=== PATIENT | female | born 1980 | race Caucasian/White ===

== ENCOUNTER 2018-07-27 21:26 | Emergency (ER) | payer OTHER ==
[2018-07-27 21:32] VITALS: BP 136/69; PULSE 81; TEMP 98.7; BMI 48.5
[2018-07-27] MEDS ORDERED: ONDANSETRON 4 MG/2 ML VIAL ONE (21:35)
[2018-07-27] MEDS ORDERED: ONDANSETRON 4 MG/2 ML VIAL IVPB ONE (21:35)
[2018-07-27] MEDS ORDERED: SODIUM CHLORIDE 0.9% 500 ML INFUS.BAG IV ONE (21:35)
[2018-07-27 22:01] LABS: BASO % 0.6 % (0-2.0); EOS % 1.2 % (0-4.5); HEMATOCRIT 40.8 % (32.4-45.2); HEMOGLOBIN 14.3 GM/dL (10.7-15.3); LYMPH % 20.9 % (8-40); MCH 31.4 pg (25.7-33.7); MCHC 35.1 g/dl (32.0-36.0); MEAN CELL VOLUME 89.6 fl (80-96); MEAN PLT VOLUME 10.2 fl (7.5-11.1); MONO % 6.6 % (3.8-10.2); NEUT % 70.7 % (42.8-82.8); PLATELET COUNT 213 K/MM3 (134-434); RBC 4.56 M/mm3 (3.60-5.2); RDW 14.2 % (11.6-15.6); WHITE BLOOD COUNT 9.8 K/mm3 (4.0-10.0)
[2018-07-27 22:15] LABS: ALBUMIN 3.9 g/dl (3.4-5.0); ALK PHOS 84 U/L (45-117); ANION GAP 8 MMOL/L (8-16); BILIRUBIN,TOTAL 0.4 mg/dL (0.2-1); BLOOD UREA NITROGEN 12 mg/dL (7-18); CALCIUM 8.5 mg/dL (8.5-10.1); CHLORIDE 101 mmol/L (98-107); CO2 28 mmol/L (21-32); CREATININE 0.8 mg/dL (0.55-1.3); LIPASE 167 U/L (73-393); POTASSIUM 4.4 mmol/L (3.5-5.1); SGOT/AST 15 U/L (15-37); SGPT/ALT 37 U/L (13-61); SODIUM 137 mmol/L (136-145); TOT PROT 7.2 g/dl (6.4-8.2)
[2018-07-27 22:16] LABS: GLUCOSE,RANDOM 317 mg/dL (74-106)
[2018-07-27] MEDS ORDERED: FAMOTIDINE 20 MG/50 ML IVPB 20 MG/50 ML MG IVPB ONE ×2 (22:23→22:33)
[2018-07-27] MEDS ORDERED: KETOROLAC TROMETHAMINE 30 MG/1 ML VIAL IVPUSH ONE (22:23)
--- NOTE | 2018-07-27 22:31 | PDOC ---
History of Present Illness - General Chief Complaint: Pain, Acute Stated Complaint: NAUSEA/VOMITING Time Seen by Provider: 07/27/18 21:34 History Source: Patient Exam Limitations: No Limitations - History of Present Illness Initial Comments: 07/27/18 22:24 Patient is a 33-year-old female with history of DM, acid reflux, C/S, BTL, 6 months complaining of right upper quadrant pain x 3 days. Pain is colicky and sharp, 10/10 back associated nausea and many episodes of vomiting, small amount of diarrhea, which started after eating in a salad and pizza. Patient states she went to [facility] yesterday had labs and an ultrasound done they state no findings. However after being treated in the emergency room, discharge home pain returned. PMD: [facility] PMHX: As above PSOCHX: Negative EtOH, negative cigarette, negative drugs ALL: NKDA GENERAL/CONSTITUTIONAL: [No fever or chills. No weakness. No weight change.] HEAD, EYES, EARS, NOSE AND THROAT: [No change in vision. No ear pain or discharge. No sore throat.] CARDIOVASCULAR: [No chest pain or shortness of breath.] RESPIRATORY: [No cough, wheezing, or hemoptysis.] GASTROINTESTINAL: (+) nausea, vomiting, diarrhea or constipation. No rectal bleeding.] GENITOURINARY: [No dysuria, frequency, or change in urination.] MUSCULOSKELETAL: [No joint or muscle swelling or pain. No neck or back pain.] SKIN AND BREASTS: [No rash or easy bruising.] NEUROLOGIC: [No headache, vertigo, loss of consciousness, or loss of sensation.] PSYCHIATRIC: [No depression or anxiety.] ENDOCRINE: [No increased thirst. No abnormal weight change.] HEMATOLOGIC/LYMPHATIC: [No anemia, easy bleeding, or history of blood clots.] ALLERGIC/IMMUNOLOGIC: [No hives or skin allergy. No latex allergy.] GENERAL: [The patient is awake, alert, and fully oriented, in no acute distress. ] HEAD: [Normal with no signs of trauma.] EYES: [Pupils equal, round and reactive to light, extraocular movements intact, sclera anicteric, conjunctiva clear.] ENT: [Ears normal, nares patent, oropharynx clear without exudates. Moist mucous membranes.] NECK: [Normal range of motion, supple without lymphadenopathy, JVD, or masses.] LUNGS: [Breath sounds equal, clear to auscultation bilaterally. No wheezes, and no crackles.] HEART: [Regular rate and rhythm, normal S1 and S2 without murmur, rub.] ABDOMEN: [Soft, (+) tenderness in the RUQ and upper bactk, normoactive bowel sounds. No guarding, no rebound. No masses.] EXTREMITIES: [Normal range of motion, no edema. No clubbing or cyanosis. No cords, erythema, or tenderness.] NEUROLOGICAL: [Cranial nerves II through XII grossly intact. Normal speech, normal gait.] PSYCH: [Normal mood, normal affect.] SKIN: [Warm, Dry, normal turgor, no rashes or lesions noted.] Past History - Past Medical History Allergies/Adverse Reactions: Allergies Allergy/AdvReac Type Severity Reaction Status Date / Time No Known Allergies Allergy Verified 07/27/18 21:28 Home Medications: Ambulatory Orders Metformin HCl [Metformin HCl ER] 1,000 mg PO DAILY 07/27/18 COPD: Yes Diabetes: Yes - Suicide/Smoking/Psychosocial Hx Smoking History: Never smoked Information on smoking cessation initiated: No Hx Alcohol Use: No Drug/Substance Use Hx: No Substance Use Type: None *Physical Exam - Vital Signs Last Vital Signs Temp Pulse Resp BP Pulse Ox 98.7 F 81 16 136/69 100 07/27/18 21:28 07/27/18 21:28 07/27/18 21:28 07/27/18 21:28 07/27/18 21:28 ED Treatment Course - LABORATORY CBC & Chemistry Diagram: 07/27/18 21:35 07/27/18 21:35 - ADDITIONAL ORDERS Additional order review: Laboratory Results 07/27/18 07/27/18 21:35 21:35 Sodium 137 Potassium 4.4 Chloride 101 Carbon Dioxide 28 Anion Gap 8 BUN 12 Creatinine 0.8 Creat Clearance w eGFR > 60 Random Glucose 317 H* Calcium 8.5 Total Bilirubin 0.4 AST 15 ALT 37 Alkaline Phosphatase 84 Total Protein 7.2 Albumin 3.9 Lipase 167 Serum , Qual Negative 07/27/18 21:35 RBC 4.56 MCV 89.6 MCHC 35.1 RDW 14.2 MPV 10.2 Neutrophils % 70.7 Lymphocytes % 20.9 Monocytes % 6.6 Eosinophils % 1.2 Basophils % 0.6 - Medications Given in the ED: ED Medications Discontinued Medications Generic Name Dose Route Start Last Admin Trade Name Abbe PRN Reason Stop Dose Admin Ondansetron HCl 4 mg 07/27/18 21:35 07/27/18 21:42 Zofran Injection IVPB 07/27/18 21:36 4 mg ONCE ONE Administration Sodium Chloride 1,000 ml 07/27/18 21:35 07/27/18 21:42 Normal Saline - IV 07/27/18 21:36 1,000 ml ONCE ONE Administration Medical Decision Making - Medical Decision Making 07/27/18 22:24 Patient is a 33-year-old female with history of DM, acid reflux, C/S, BTL, 6 months complaining of right upper quadrant pain x 3 days. Pain is colicky and sharp, 10/10 back associated nausea and many episodes of vomiting, small amount of diarrhea, which started after eating in a salad and pizza. patient had work up yesterday with US she states no findings. Suspect gastritis versus cholecystitis will get labs ct abd Pain meds. Patient was given Toradol 30 mg IV and Pepcid 20 mg IV, IV fluids with no relief of symptoms. Morphine 4 mg IV with good relief of symptoms. 07/27/18 22:33 No acute findings on lab work except for BS of 317 Bedside ultrasound done no normal gallbladder 07/28/18 01:22 Patient Full Name: NICOLE GARAY Patient Accession No: [id number] Patient : 1980 Reason for Exam: RUQ PAIN Referring Physician: Patient Name: TANISHA RIVERA THIS IS A PRELIMINARY REPORT FROM [facility] DATE OF SERVICE: 2018-07-27 23:43:17 IMAGES: [id number] EXAM: ABDOMEN \T\ PELVIS CT WITH CONTR HISTORY: Right upper quadrant pain COMPARISON: None. FINDINGS: No obvious abnormalities of the gallbladder. There is any suspicion of cholelithiasis or cholecystitis, ultrasound is more sensitive. No bowel obstruction or inflammation. Normal appendix. Negative for diverticulitis or colitis. Normal kidneys the urinary tracts and urinary bladder. Liver borderline enlarged. Spleen upper limits normal. Normal pancreas. Normal adrenal glands. No obvious abnormalities of the reproductive organs. Osseous structures are intact. One or more of the following dose reduction techniques were used: automated exposure control, adjustment of the mA and/or kV according to patient size, use of iterative reconstructive technique. THIS DOCUMENT HAS BEEN ELECTRONICALLY SIGNED Cricket Mcgee MD 07/28/2018 00:12 MARCELINO Galarza. Please call Imaging Call Center Supervisor [phone] ([phone]) with questions. INTERPRETING RADIOLOGIST: Cricket Mcgee MD Electronically Signed: Jul 28, 2018 12:12AM EST I discussed the physical exam findings, ancillary test results and final diagnoses with the patient. I answered all of the patient's questions. The patient was satisfied with the care received and felt comfortable with the discharge plan and treatment plan. The Patient agrees to follow up with the primary care physician within 24-72 hours. *DC/Admit/Observation/Transfer Diagnosis at time of Disposition: Abdominal pain Qualifiers: Abdominal location: epigastric Qualified Code(s): R10.13 - Epigastric pain Gastritis Qualifiers: Gastritis type: unspecified gastritis Chronicity: acute Gastritis bleeding: without bleeding Qualified Code(s): K29.00 - Acute gastritis without bleeding - Discharge Dispostion Disposition: HOME Condition at time of disposition: Stable - Referrals Referrals: Santosh Darby DO [Staff Physician] - - Patient Instructions Printed Discharge Instructions: DI for Epigastric Pain Additional Instructions: Your Discharge Instructions: You must call primary care physician within 24 hours to arrange follow-up. Return to the Emergency Department with any new, persistent or worsening symptoms, for fever, chills, SOB, dizziness or any other concerning changes that may occur. Continue Pepcid and Maalox for the pain. Stick to a diet which excludes fats, acidic foods. You must also follow up with the collision estimator for further workup and evaluation. - Post Discharge Activity Forms/Work/School Notes: Back to Work
[2018-07-27] MEDS ORDERED: KETOROLAC TROMETHAMINE 30 MG/1 ML VIAL ONE (22:32)
[2018-07-27] MEDS ORDERED: morphine SULFATE 4 MG/ML VIAL ONE (22:53)
[2018-07-27] MEDS ORDERED: morphine CARPU-JECT 4 MG/1 ML DISP.SYRIN IVPUSH ONE (23:08)
[2018-07-28] MEDS ORDERED: SUCRALFATE 1 GM TABLET (FP) ONE (01:40)
[2018-07-28] MEDS ORDERED: SUCRALFATE 1 GM/10 ML UNIT DOSE CUPS PO ONE (01:41)
[2018-07-28 02:32] LABS: PH,URINE 5.5 (5.0-8.0); URINE APPEARANCE Clear; URINE BILIRUBIN Negative (<2.0 mg/dL); URINE COLOR Yellow; URINE GLUCOSE (UA) 3+ (NEGATIVE); URINE KETONE Negative (NEGATIVE); URINE LEUK ESTERASE Negative (NEGATIVE); URINE NITRITE Negative (NEGATIVE); URINE PROTEIN Negative (NEGATIVE); URINE UROBILINOGEN 0.2 mg/dL (0.2-1.0)
== END 2018-07-28 02:00 | disposition home or self-care (01) ==
LOC: JER 21:26
PROC: 3E033GC Introduction of Other Therapeutic Substance into Peripheral Vein, Percutaneous Approach (ICD-10-PCS; principal; 2018-07-27)
PROC: 3E033GC Introduction of Other Therapeutic Substance into Peripheral Vein, Percutaneous Approach (ICD-10-PCS; 2018-07-27)
PROC: 3E033NZ Introduction of Analgesics, Hypnotics, Sedatives into Peripheral Vein, Percutaneous Approach (ICD-10-PCS; 2018-07-27)
PROC: 3E0333Z Introduction of Anti-inflammatory into Peripheral Vein, Percutaneous Approach (ICD-10-PCS; 2018-07-27)
DX: K29.00 Acute gastritis without bleeding (principal); E11.9 Type 2 diabetes mellitus without complications; Z79.84 Long term (current) use of oral hypoglycemic drugs; K21.9 Gastro-esophageal reflux disease without esophagitis; Z98.51 Tubal ligation status
CPT/HCPCS: 36415; 74177-TC; 80053; 81003; 83690; 84703; 85025; 99282-25